=== PATIENT | female | born 1965 | race Caucasian/White ===

== ENCOUNTER 2017-01-29 14:57 | Emergency (ER) | payer OTHER ==
[2017-01-29 15:05] VITALS: BMI 20.1
[2017-01-29] MEDS ORDERED: ONDANSETRON 4 MG/2 ML VIAL IVPB ONE ×2 (15:31→21:02)
[2017-01-29] MEDS ORDERED: SODIUM CHLORIDE 1,000 ML IV ONE ×2 (15:31→17:33)
--- NOTE | 2017-01-29 15:32 | PDOC ---
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 She states she went to get up from laying in bed, and passed out on to ebathroom. She admits to feeling lightheaded after getting up and passing out, she suspects she hit her head as she endorses amild headache. The patient states she opened her eyes, realized she was on the floor, and crawled back into bed. The patient states she vomits mostly food yesterday but now is mostly clear/yellow - no blood/not black. She reports her abdominal pain as a diffuse burning and cramping. She denies any aggravating or alleviating factors for her abdominal pain. She also reports numerous episodes of loose watery stools. She denies hematochezia/black stool No known sick contacts. She denies chest pain, shortness of breath, headache and dizziness. She denies fever, chills, and constipation. She denies dysuria, frequency, urgency and hematuria. Allergies: Penicillins Past surgical history: appendectomy PCP - Dr. Mayur Marquez <Viola Moore - Last Filed: 01/29/17 16:27> <Jeremi Denny - Last Filed: 01/30/17 08:36> - General Chief Complaint: Nausea/Vomiting Stated Complaint: SYNCOPE,VOMITING Time Seen by Provider: 01/29/17 15:06 Past History <Viola Moore - Last Filed: 01/29/17 16:27> - Past Medical History Psychiatric Problems: Yes (ANXIETY) - Surgical History Abdominal Surgery: Yes Appendectomy: Yes - Psycho/Social/Smoking Cessation Hx Anxiety: No Suicidal Ideation: No Smoking Status: Yes Smoking History: Current every day smoker Have you smoked in the past 12 months: Yes Number of Cigarettes Smoked Daily: 5 Information on smoking cessation initiated: No 'Breaking Loose' booklet given: 03/25/16 Hx Alcohol Use: No Drug/Substance Use Hx: No Substance Use Type: None Hx Substance Use Treatment: No <Jeremi Denny - Last Filed: 01/30/17 08:36> - Past Medical History Allergies/Adverse Reactions: Allergies Allergy/AdvReac Type Severity Reaction Status Date / Time Penicillins Allergy Severe Difficulty Verified 01/29/17 15:03 Breathing Home Medications: Ambulatory Orders Oxycodone HCl 15 tab PO PRN PRN 03/25/16 Ondansetron [Zofran Odt -] 4 mg SL TID #21 od.tablet 01/30/17 Pantoprazole Sodium [Protonix -] 40 mg PO BID #60 tablet.ec 01/30/17 Sucralfate Oral Suspension [Carafate *Oral Susp*] 1 gm PO BID #200 ml 01/30/17 Review of Systems - Review of Systems Able to Perform ROS?: Yes Comments:: 01/29/17 16:27 CONSTITUTIONAL: No reported: Fever, Chills, Diaphoresis, Generalized Weakness, Malaise, Loss of Appetite HEENT: No reported: Rhinorrhea, Nasal Congestion, Throat Pain, Throat Swelling, Difficulty Swallowing, Mouth Swelling, Ear Pain, Eye Pain, Visual Changes CARDIOVASCULAR: No reported: Chest Pain, Syncope, Palpitations, Irregular Heart Rate, Lightheadedness, Peripheral Edema RESPIRATORY: No reported: Cough, Shortness of Breath, SOB with Exertion, Orthopnea, Wheezing , Stridor, Hemoptysis GASTROINTESTINAL: (+) Abdominal pain,Nausea, Vomiting, Diarrhea, No reported: Abdominal Distension, Constipation, Melena, Hematochezia GENITOURINARY: No reported: Dysuria, Frequency, Urgency, Hesitancy, Flank Pain, Genital Pain MUSCULOSKELETAL: No reported: Myalgia, Arthralgia, Joint Swelling, Back pain, Neck Pain SKIN: No reported: Rash, Itching, Pallor HEMEATOLOGIC/IMMUNOLOGIC: No reported: Easy Bleeding, Easy Bruising, Lymphadenopathy, Frequent infections ENDOCRINE: No reported: Unexplained Weight Gain, Unexplained Weight Loss, Heat Intolerance , Cold Intolerance NEUROLOGIC: No reported: Headache, Focal Weakness, Paresthesias, Vertigo, Lightheadedness, Unsteady Gait, Seizure, Mental Status Changes, Incontinence PSYCHIATRIC: No reported: Anxiety, Depression <Viola Moore - Last Filed: 01/29/17 16:27> *Physical Exam - Vital Signs Last Vital Signs Temp Pulse Resp BP Pulse Ox 98.6 F 73 20 152/98 100 06/15/17 15:03 01/29/17 15:03 01/29/17 15:03 01/29/17 15:03 01/29/17 15:03 - Physical Exam Comments: 01/29/17 16:27 GENERAL: The patient is awake, alert, and fully oriented, Nontoxic - in no acute distress. HEAD: Normocephalic, atraumatic. EYES: extraocular movements intact, sclera anicteric, conjunctiva clear. ENT: Normal voice, dry mucous membranes. NECK: Normal range of motion, supple LUNGS: Breath sounds equal, clear to auscultation bilaterally. No wheezes, no rhonchi, no rales. HEART: Regular rate and rhythm, without murmur, rub or gallop. ABDOMEN: (+) diffuse mild tenderness to palpation.hyper active bowel sounds, EXTREMITIES: Normal range of motion, no edema. No clubbing or cyanosis. No cords, erythema, or tenderness. NEUROLOGICAL: No facial assymetry, Normal speech, PSYCH: Normal mood, normal affect. SKIN: Warm, Dry, normal turgor, <Viola Moore - Last Filed: 01/29/17 16:27> - Vital Signs Last Vital Signs Temp Pulse Resp BP Pulse Ox 98.6 F 73 20 152/98 100 01/29/17 15:03 01/29/17 15:03 01/29/17 15:03 01/29/17 15:03 01/29/17 15:03 <Jeremi Denny - Last Filed: 01/30/17 08:36> ED Treatment Course - LABORATORY CBC & Chemistry Diagram: 01/29/17 16:00 01/29/17 16:00 <Viola Moore - Last Filed: 01/29/17 16:27> - LABORATORY CBC & Chemistry Diagram: 01/29/17 16:00 01/29/17 16:00 <Jeremi Denny - Last Filed: 01/30/17 08:36> Medical Decision Making - Medical Decision Making 01/29/17 17:32 labs reviewed noted for leukocytosis to 16.[address] due to persistent pain will sign out to dr. hammer to reasess and dispoiton <Jeremi Denny - Last Filed: 01/30/17 08:36> *DC/Admit/Observation/Transfer - Attestations Scribe Attestion: 01/29/17 16:28 Documentation prepared by Viola Moore, acting as medical office technologist for Jeremi Denny MD, <Viola Moore - Last Filed: 01/29/17 16:27> <Jeremi Denny - Last Filed: 01/30/17 08:36> Diagnosis at time of Disposition: Abdominal pain, Nausea & vomiting, Syncope - Discharge Dispostion Disposition: HOME Condition at time of disposition: Stable - Prescriptions Prescriptions: Sucralfate Oral Suspension [Carafate *Oral Susp*] 1 gm PO BID #200 ml Pantoprazole Sodium [Protonix -] 40 mg PO BID #60 tablet.ec Ondansetron [Zofran Odt -] 4 mg SL TID #21 od.tablet - Referrals Referrals: Mayur Marquez MD [Primary Care Provider] - - Patient Instructions Printed Discharge Instructions: DI for Abdominal Pain-Adult
[2017-01-29] MEDS ORDERED: ONDANSETRON 4 MG/2 ML VIAL ONE ×2 (15:38→19:07)
[2017-01-29] MEDS ORDERED: MAG HYDROX/AL HYDROX/SIMETH -MYLANTA- ORAL SUSPENSION PO ONE (15:43)
[2017-01-29] MEDS ORDERED: FAMOTIDINE 20 MG/50 ML IVPB 20 MG in PREMIX 50 IVPB ONE (15:43)
[2017-01-29] MEDS ORDERED: MAG HYDROX/AL HYDROX/SIMETH 30 ML UNIT-DOSE CUP ONE (15:44)
[2017-01-29] MEDS ORDERED: FAMOTIDINE 20 MG/50 ML IVPB 50 ML IVPB ONE (15:44)
[2017-01-29 16:21] LABS: HEMATOCRIT 46.1 % (32.4-45.2); HEMOGLOBIN 15.4 GM/dL (10.7-15.3); MCH 28.7 pg (25.7-33.7); MCHC 33.4 g/dl (32.0-36.0); MEAN CELL VOLUME 86.1 fl (80-96); MEAN PLT VOLUME 8.8 fl (7.5-11.1); PLATELET COUNT 305 K/MM3 (134-434); RBC 5.36 M/mm3 (3.60-5.2); WHITE BLOOD COUNT 16.5 K/mm3 (4.0-10.0)
[2017-01-29] MEDS ORDERED: morphine CARPU-JECT 2 MG/1 ML DISP.SYRIN IVPUSH ONE (16:30)
[2017-01-29 16:32] LABS: INR 1.11 (0.82-1.09); PROTHROMBIN TIME (PATIENT) 12.2 SEC (9.98-11.88)
[2017-01-29] MEDS ORDERED: morphine CARPU-JECT 2 MG/1 ML DISP.SYRIN ONE (16:39)
[2017-01-29 16:43] LABS: ANION GAP 13 (8-16); BLOOD UREA NITROGEN 11 mg/dL (7-18); CALCIUM 9.3 mg/dL (8.5-10.1); CHLORIDE 102 mmol/L (98-107); CO2 23 mmol/L (21-32); CREATININE 0.5 mg/dL (0.55-1.02); GLUCOSE,RANDOM 126 mg/dL (74-106); LIPASE 77 U/L (73-393); POTASSIUM 3.4 mmol/L (3.5-5.1); SGOT/AST 19 U/L (15-37); SGPT/ALT 24 U/L (12-78); SODIUM 138 mmol/L (136-145)
[2017-01-29 16:45] LABS: ALK PHOS 134 U/L (45-117); BILIRUBIN,TOTAL 0.7 mg/dL (0.2-1.0); TOT PROT 7.7 g/dl (6.4-8.2)
[2017-01-29 17:48] LABS: TOTAL CELLS COUNTED 100
[2017-01-29] MEDS ORDERED: morphine CARPU-JECT 4 MG/1 ML DISP.SYRIN IVPUSH ONE (17:48)
[2017-01-29] MEDS ORDERED: morphine CARPU-JECT 4 MG/1 ML DISP.SYRIN ONE (17:50)
[2017-01-29 17:52] LABS: PLATELET ESTIMATE ADEQUATE (NORMAL)
[2017-01-29] MEDS ORDERED: METOCLOPRAMIDE HCL INJECTION 10 MG/2 ML VIAL IVPUSH ONE (21:07)
[2017-01-29] MEDS ORDERED: DEXTROSE 5%-0.45% SALINE 1,000 ML IV SCH (21:15)
--- NOTE | 2017-01-29 22:16 | PDOC ---
*Physical Exam - Vital Signs Last Vital Signs Temp Pulse Resp BP Pulse Ox 98.9 F 85 20 140/66 98 01/29/17 19:00 01/29/17 19:00 01/29/17 19:00 01/29/17 19:00 01/29/17 19:00 - Physical Exam Comments: 01/29/17 22:14 patient endorsed to me by Dr. Denny. Patient is a 51-year-old female who presented to the ER after syncopal episode preceded by numerous episodes of nonbloody, nonbilious vomiting and loose watery stools as well as diffuse abdominal pain. In the ER, patient is awake and alert, has received 2 doses of IV morphine. CBC reveals leukocytosis of 16 and predominance of neutrophils. CT of abdomen and pelvis with by mouth and IV contrast revealed no evidence of acute intra-abdominal pathology. I suspect acute gastroenteritis. We'll administer Reglan with Benadryl since IV Zofran has not been able to control patient's nausea and vomiting. We'll administer D5 half-normal. Will reassess. 01/30/17 01:51 pt reports feeling better. sen po. abd eval reveals epigastric ttp only. will d/c with protonix, carafate and zofran with gi f/u. ED Treatment Course - LABORATORY CBC & Chemistry Diagram: 01/29/17 16:00 01/29/17 16:00 - ADDITIONAL ORDERS Additional order review: Laboratory Results 01/29/17 01/29/17 16:00 16:00 INR 1.11 Sodium 138 Potassium 3.4 L D Chloride 102 Carbon Dioxide 23 Anion Gap 13 BUN 11 D Creatinine 0.5 L Creat Clearance w eGFR > 60 Random Glucose 126 H D Calcium 9.3 Total Bilirubin 0.7 D AST 19 D ALT 24 D Alkaline Phosphatase 134 H D Total Protein 7.7 D Albumin 4.0 D Lipase 77 01/29/17 16:00 RBC 5.36 H MCV 86.1 MCHC 33.4 RDW 13.0 MPV 8.8 Neutrophils % 85.0 H D Lymphocytes % 7.0 L D Monocytes % 3.0 L - Medications Given in the ED: ED Medications Discontinued Medications Generic Name Dose Route Start Last Admin Trade Name Freq PRN Reason Stop Dose Admin Al Hydroxide/Mg Hydroxide 30 ml 01/29/17 15:43 01/29/17 16:22 Mylanta Suspension - PO 01/29/17 15:44 30 ml ONCE ONE Administration Sodium Chloride 1,000 mls @ 1,000 mls/hr 01/29/17 15:31 01/29/17 16:26 Normal Saline - IV 01/29/17 16:30 1,000 mls/hr .Q1H ONE Administration Famotidine/Sodium Chloride 20 50 mls @ 100 mls/hr 01/29/17 15:43 01/29/17 16:27 mg/ Miscellaneous IVPB 01/29/17 16:12 100 mls/hr ONCE ONE Administration Sodium Chloride 1,000 mls @ 1,000 mls/hr 01/29/17 17:33 01/29/17 17:37 Normal Saline - IV 01/29/17 18:32 1,000 mls/hr .Q1H ONE Administration Morphine Sulfate 2 mg 01/29/17 16:30 01/29/17 16:44 Morphine Injection - IVPUSH 01/29/17 16:31 2 mg ONCE ONE Administration Morphine Sulfate 4 mg 01/29/17 17:48 01/29/17 17:49 Morphine Injection - IVPUSH 01/29/17 17:49 4 mg ONCE ONE Administration Ondansetron HCl 4 mg 01/29/17 15:31 01/29/17 16:26 Zofran Injection IVPB 01/29/17 15:32 4 mg ONCE ONE Administration *DC/Admit/Observation/Transfer Diagnosis at time of Disposition: Abdominal pain Qualifiers: Abdominal location: epigastric Qualified Code(s): R10.13 - Epigastric pain Nausea & vomiting Qualifiers: Vomiting type: unspecified Vomiting Intractability: non-intractable Qualified Code(s): R11.2 - Nausea with vomiting, unspecified Syncope Qualifiers: Syncope type: unspecified Qualified Code(s): R55 - Syncope and collapse - Discharge Dispostion Disposition: HOME Condition at time of disposition: Stable - Referrals Referrals: Mayur Marquez MD [Primary Care Provider] - - Patient Instructions - Post Discharge Activity
[2017-01-29] MEDS ORDERED: METOCLOPRAMIDE HCL INJECTION 10 MG/2 ML VIAL ONE (22:19)
[2017-01-30] MEDS ORDERED: SUCRALFATE 1 GM/10 ML UNIT DOSE CUPS PO ONE (00:42)
[2017-01-30] MEDS ORDERED: SUCRALFATE 1 GM TABLET (FP) ONE (00:49)
[2017-01-30 02:33] VITALS: BP 148/94; PULSE 70; TEMP 98.5
--- NOTE | 2017-01-30 09:40 | EKG ---
Test Reason : Blood Pressure : / mmHG Vent. Rate : 080 BPM Atrial Rate : 080 BPM P-R Int : 170 ms QRS Dur : 090 ms QT Int : 416 ms P-R-T Axes : 006 062 044 degrees QTc Int : 479 ms NORMAL SINUS RHYTHM NONSPECIFIC T WAVE ABNORMALITY WHEN COMPARED WITH ECG OF 25-MAR-2016 09:39, NO SIGNIFICANT CHANGE WAS FOUND Confirmed by ROHIT WATTS MD ([id number]) on 01/30/2017 9:40:30 AM Referred By: Confirmed By:ROHIT WATTS MD
== END 2017-01-30 01:59 | disposition home or self-care (01) ==
LOC: JER 14:57
PROC: 3E033NZ Introduction of Analgesics, Hypnotics, Sedatives into Peripheral Vein, Percutaneous Approach (ICD-10-PCS; principal; 2017-01-29)
PROC: 3E033GC Introduction of Other Therapeutic Substance into Peripheral Vein, Percutaneous Approach (ICD-10-PCS; 2017-01-29)
PROC: 3E0337Z Introduction of Electrolytic and Water Balance Substance into Peripheral Vein, Percutaneous Approach (ICD-10-PCS; 2017-01-29)
DX: R55 Syncope and collapse (principal); R11.2 Nausea with vomiting, unspecified; R10.9 Unspecified abdominal pain; F41.9 Anxiety disorder, unspecified; F17.210 Nicotine dependence, cigarettes, uncomplicated; Z88.0 Allergy status to penicillin
CPT/HCPCS: 36415; 74177-TC; 80053; 83690; 85025; 85610; 93005; 93010; 99284-25; J7030

== ENCOUNTER 2018-01-21 23:04 | Inpatient (IN) | payer OTHER ==
[2018-01-21] MEDS ORDERED: ACETAMINOPHEN 325 MG TABLET (FP) ONE (23:39)
--- NOTE | 2018-01-21 23:43 | PDOC ---
History of Present Illness - General Chief Complaint: Difficulty seeing Stated Complaint: Difficulty seeing Time Seen by Provider: 01/21/18 23:26 History Source: Patient - History of Present Illness Initial Comments: 01/21/18 23:55 52 year old female with generalized bodyaches, neck pain and headache with vision loss (sees shadows) since this morning. denies NVD abdominal pain. pmhx: back surgeries Dr. Mayur Marquez Past History - Past Medical History Allergies/Adverse Reactions: Allergies Allergy/AdvReac Type Severity Reaction Status Date / Time Penicillins Allergy Severe Difficulty Verified 01/21/18 23:24 Breathing Anemia: No Asthma: No Cancer: No Cardiac Disorders: No CVA: No COPD: No DVT: No Dementia: No Diabetes: No Dialysis: No GI Disorders: No Disorders: No HTN: Yes Hypercholesterolemia: No Kidney Stones: No Liver Disease: No Psychiatric Problems: Yes (ANXIETY) Seizures: No Thyroid Disease: No Lung CA: No - Surgical History Abdominal Surgery: Yes Appendectomy: Yes Cardiac Surgery: No Cholecystectomy: No Gastric Stapling: No GI Surgery: No Lung Surgery: No Neurologic Surgery: Yes (Spinal sx) - Family Disease History Family Disease History: Other: Brother (poly) - Suicide/Smoking/Psychosocial Hx Smoking Status: Yes Smoking History: Current some day smoker Have you smoked in the past 12 months: Yes Number of Cigarettes Smoked Daily: 5 Information on smoking cessation initiated: Yes 'Breaking Loose' booklet given: 03/25/16 Hx Alcohol Use: No Drug/Substance Use Hx: No Substance Use Type: None Hx Substance Use Treatment: No *Physical Exam - Vital Signs Last Vital Signs Temp Pulse Resp BP Pulse Ox 99.9 F H 90 18 158/100 98 01/21/18 23:18 01/21/18 23:18 01/21/18 23:18 01/21/18 23:18 01/21/18 23:18 - Physical Exam General Appearance: Yes: Moderate Distress HEENT: positive: Other (+ b/l red reflex pupils equal and reactive. ) Respiratory/Chest: positive: Lungs Clear, Normal Breath Sounds Cardiovascular: positive: Regular Rhythm, Regular Rate Gastrointestinal/Abdominal: positive: Normal Bowel Sounds, Soft Extremity: positive: Normal Capillary Refill, Normal Inspection, Normal Range of Motion Integumentary: positive: Normal Color, Dry, Warm Neurologic: positive: Fully Oriented, Alert, Normal Mood/Affect Heart Score/ECG Review - History History: Slightly suspicious - Electrocardiogram EKG: Normal - Age Age: 45-65 - Risk Factors Based on the list above the patient has:: 1-2 risk factors - Troponin Troponin: 1-3x normal limit - Score Heart Score - Total: 3 - ECG Intrepretation Rhythm: Regular Rhythm Comment:: 01/22/18 02:41 NSR: 72 bpm ED Treatment Course - LABORATORY CBC & Chemistry Diagram: 01/21/18 23:57 01/21/18 23:55 Medical Decision Making - Medical Decision Making 01/22/18 03:29 Lumbar puncture attempted. multiple attempt. patient with history of spinal fusions. patient need IR guided LP. patient continues to have severe headache. will give fentanyl 25 mcg dose # 2. 01/22/18 03:35 patient reports that she does not have an allergy to penicillin. will give ceftriaxone 01/22/18 03:56 Patient is accepted to the ICU for neurological monitoring. currently hemodynamically stable. patient signed out to Dr. Barrett *DC/Admit/Observation/Transfer Diagnosis at time of Disposition: Vision loss, bilateral Intractable headache Qualifiers: Headache type: unspecified Headache chronicity pattern: acute headache Qualified Code(s): R51 - Headache - Discharge Dispostion Decision to Admit order: Yes - Referrals - Patient Instructions - Post Discharge Activity
[2018-01-21] MEDS ORDERED: SODIUM CHLORIDE 1,000 ML IV ONE (23:48)
[2018-01-22] MEDS ORDERED: METOCLOPRAMIDE HCL INJECTION 10 MG/2 ML VIAL ONE (00:10)
[2018-01-22] MEDS ORDERED: METOCLOPRAMIDE HCL INJECTION 10 MG/2 ML VIAL IVPUSH ONE (00:11)
[2018-01-22] MEDS ORDERED: ACETAMINOPHEN INJECTION 100 ML IVPB ONE (00:11)
[2018-01-22] MEDS ORDERED: ACETAMINOPHEN 1000 MG/100 ML VIAL (NON FORMULARY) IVPB ONE (00:11)
[2018-01-22 00:19] LABS: BASO % 0.2 % (0-2.0); HEMATOCRIT 46.4 % (32.4-45.2); HEMOGLOBIN 15.9 GM/dL (10.7-15.3); LYMPH % 8.7 % (8-40); MCH 29.7 pg (25.7-33.7); MCHC 34.3 g/dl (32.0-36.0); MEAN CELL VOLUME 86.7 fl (80-96); MEAN PLT VOLUME 9.3 fl (7.5-11.1); MONO % 5.6 % (3.8-10.2); NEUT % 85.5 % (42.8-82.8); PLATELET COUNT 328 K/MM3 (134-434); RBC 5.36 M/mm3 (3.60-5.2); WHITE BLOOD COUNT 20.2 K/mm3 (4.0-10.0)
[2018-01-22 00:30] LABS: INR 1.05 (0.82-1.09); PROTHROMBIN TIME (PATIENT) 11.9 SEC (9.7-13.0)
[2018-01-22 00:41] LABS: ALBUMIN 3.9 g/dl (3.4-5.0); ALK PHOS 111 U/L (45-117); ANION GAP 10 (8-16); BILIRUBIN,TOTAL 0.9 mg/dL (0.2-1.0); BLOOD UREA NITROGEN 13 mg/dL (7-18); CALCIUM 8.8 mg/dL (8.5-10.1); CHLORIDE 103 mmol/L (98-107); CO2 22 mmol/L (21-32); CREATININE 0.6 mg/dL (0.55-1.02); GLUCOSE,RANDOM 112 mg/dL (74-106); POTASSIUM 3.5 mmol/L (3.5-5.1); SGOT/AST 21 U/L (15-37); SGPT/ALT 27 U/L (12-78); SODIUM 135 mmol/L (136-145); TOT PROT 7.8 g/dl (6.4-8.2)
[2018-01-22 00:55] LABS: PLATELET ESTIMATE ADEQUATE
[2018-01-22] MEDS ORDERED: morphine CARPU-JECT 4 MG/1 ML DISP.SYRIN IVPUSH ONE ×2 (00:56→02:04)
[2018-01-22] MEDS ORDERED: morphine SULFATE 4 MG/ML VIAL ONE ×2 (00:56→02:00)
[2018-01-22] MEDS ORDERED: SODIUM CHLORIDE 1,000 ML IV STA (00:59)
[2018-01-22] MEDS ORDERED: MAGNESIUM SULF 50% (8.12 MEQ/2 ML-1 GM VIAL) IVPB ONE (01:16)
[2018-01-22] MEDS ORDERED: DEXAMETHASONE SOD PHOSPHATE 10 MG/1 ML VIAL IVPUSH ONE (01:16)
[2018-01-22] MEDS ORDERED: DEXAMETHASONE SOD PHOSPHATE 10 MG/1 ML VIAL ONE (01:22)
--- NOTE | 2018-01-22 01:32 | PDOC ---
*Physical Exam - Vital Signs Last Vital Signs Temp Pulse Resp BP Pulse Ox 99.9 F H 90 18 158/100 98 01/21/18 23:18 01/21/18 23:18 01/21/18 23:18 01/21/18 23:18 01/21/18 23:18 - Physical Exam Comments: 01/22/18 02:03 gen: appears uncomfortable HEENT: sees shadows, unable to see otherwise, pupils reactive neck: supple, no meningeal signs neuro: no focal deficits other than acute vision loss Heart Score/ECG Review - ECG Intrepretation Comment:: 01/22/18 01:32 sinus at 72, nl axis, nl interval, t wave inversions V2, abnl ekg ED Treatment Course - LABORATORY CBC & Chemistry Diagram: 01/21/18 23:57 01/21/18 23:55 - ADDITIONAL ORDERS Additional order review: Laboratory Results 01/22/18 01/21/18 01/21/18 00:33 23:57 23:55 PT with INR 11.90 INR 1.05 Sodium 135 L Potassium 3.5 Chloride 103 Carbon Dioxide 22 Anion Gap 10 BUN 13 Creatinine 0.6 Creat Clearance w eGFR > 60 Random Glucose 112 H Lactic Acid 1.1 Calcium 8.8 Total Bilirubin 0.9 D AST 21 ALT 27 Alkaline Phosphatase 111 Creatine Kinase 223 H Creatine Kinase Index 0.6 CK-MB (CK-2) 1.36 Troponin I 0.07 H Total Protein 7.8 Albumin 3.9 01/21/18 23:57 RBC 5.36 H MCV 86.7 MCHC 34.3 RDW 13.0 MPV 9.3 Neutrophils % 85.5 H Lymphocytes % 8.7 D Monocytes % 5.6 D Eosinophils % 0.0 D Basophils % 0.2 - Medications Given in the ED: ED Medications Discontinued Medications Generic Name Dose Route Start Last Admin Trade Name Freq PRN Reason Stop Dose Admin Acetaminophen 1,000 mg 01/22/18 00:11 01/22/18 00:31 Ofirmev Injection - IVPB 01/22/18 00:12 1,000 mg ONCE ONE Administration Sodium Chloride 1,000 mls @ 1,000 mls/hr 01/21/18 23:48 01/22/18 00:05 Normal Saline - IV 01/22/18 00:47 1,000 mls/hr .Q1H ONE Administration Metoclopramide HCl 10 mg 01/22/18 00:11 01/22/18 00:31 Reglan Injection - IVPUSH 01/22/18 00:12 10 mg ONCE ONE Administration Morphine Sulfate 4 mg 01/22/18 00:56 01/22/18 00:59 Morphine Injection - IVPUSH 01/22/18 00:57 4 mg ONCE ONE Administration Medical Decision Making - Medical Decision Making 01/22/18 01:22 a/p: 52yo female with back pain, neck pain, bergman, vision loss today - generalized body aches -concern for acute vision loss - woke up with the vision loss appears uncomfortable will need labs, ekg, cxr, head ct 01/22/18 01:[address] without acute findings will obtain cta head to eval vessels elevated wbc may need LP will give steroids cultures sent low grade temp 01/22/18 02:04 pt will be signed out to the oncoming ED physician *DC/Admit/Observation/Transfer Diagnosis at time of Disposition: Vision loss, bilateral - Referrals - Patient Instructions - Post Discharge Activity - Attestations Physician Attestion: 01/22/18 02:04 I, Dr. Michelle Purdy, DO, attest that this document has been prepared under my direction and personally reviewed by me in its entirety. I further attest, that it accurately reflects all work, treatment, procedures and medical decision -making performed by me.
[2018-01-22 01:59] LABS: INR 1.04 (0.82-1.09); PROTHROMBIN TIME (PATIENT) 11.8 SEC (9.7-13.0)
[2018-01-22 02:01] LABS: ACTIVATED PTT 37.5 SECONDS (26.9-34.4)
[2018-01-22 02:04] LABS: URINE APPEARANCE CLEAR; URINE BILIRUBIN NEGATIVE (<2.0 mg/dL); URINE BLOOD 2+ (NEGATIVE); URINE COLOR STRAW; URINE GLUCOSE (UA) NEGATIVE (NEGATIVE); URINE KETONE 1+ (NEGATIVE); URINE LEUK ESTERASE NEGATIVE (NEGATIVE); URINE NITRITE NEGATIVE (NEGATIVE); URINE UROBILINOGEN NEGATIVE mg/dL (0.2-1.0)
[2018-01-22 02:10] LABS: URINE PROTEIN 1+ (NEGATIVE)
[2018-01-22 02:12] LABS: EPI CELLS FEW /HPF (FEW); URINE BACTERIA FEW /hpf (NONE SEEN); URINE MUCUS RARE
[2018-01-22 02:40] LABS: COCAINE, UR NEGATIVE ng/ml (CUTOFF=300); METHADONE, UR NEGATIVE ng/ml (CUTOFF=300); PHENCYCLIDINE,URINE NEGATIVE ng/ml (CUTOFF=25); URINE AMPHETAMINES NEGATIVE ng/ml (CUTOFF=500); URINE BARBITURATES NEGATIVE ng/ml (CUTOFF=200); URINE BENZODIAZEPINES NEGATIVE ng/ml (CUTOFF=200)
[2018-01-22 02:41] LABS: OPIATES, URI POSITIVE ng/ml (CUTOFF=300)
[2018-01-22] MEDS ORDERED: LIDOCAINE HCL 2% (20ML MULTI-DOSE VIAL) NR ONE (03:22)
[2018-01-22] MEDS ORDERED: VANCOMYCIN 1,000 MG in DEXTROSE 5%-WATER - 250 ML IVPB ONE (03:30)
[2018-01-22] MEDS ORDERED: CEFTRIAXONE 2 GM-D5W BAG 2 GM/50 ML BAG IVPB ONE (03:30)
[2018-01-22] MEDS ORDERED: ACYCLOVIR INJECTION 500 MG in DEXTROSE 5%-WATER - 100 ML IVPB ONE (03:30)
[2018-01-22 04:41] VITALS: BMI 19.8
[2018-01-22] MEDS ORDERED: ACETAMINOPHEN 1000 MG/100 ML VIAL (NON FORMULARY) IVPB PRN (04:56)
[2018-01-22] MEDS ORDERED: hydrALAZINE HCL 20 MG/ML VIAL IVPUSH ONE (04:57)
[2018-01-22] MEDS ORDERED: morphine SULFATE 4 MG/ML VIAL IVPUSH PRN ×2 (05:09→11:48)
--- NOTE | 2018-01-22 05:27 | CONSULT ---
Consult Consult Specialty:: Pulm/CCM Reason for Consultation:: Alteration in vision and headache - History of Present Illness Chief Complaint: Headache History of Present Illness: 52yow with PMHx of HTN (non-compliant with meds), spinal stenosis s/p fusion who presented to ED with c/o headache and vision loss x1 day. She also c/o dizziness, n/v. She denied chest pain, SOB, LOC, weakness, paresthesia. In ED T 99.9, HR 90, RR 18, BP 158/100, O2 sat 98% on room air. Labs notable for WBC 20, troponin 0.07. Urine tox +opiates but sent after morphine dose. CTA head negative for acute pathology. Given leukocytosis there was c/f meningitis. LP unsuccessful after multiple attempts. Started empirically on meningitis coverage pending LP in IR. Given decadron. Morphine given for headache. She was transferred to ICU for neuro checks. In ICU pt rec'd anxious and c/o headache / and requesting pain. VS [id number]- 140's/80-100, HR70, T 98.2, O2 sat 100% on room air. No focal deficits. Pt c/o numbness and tingling in BUE fingers. Pt able to ambulate with minimal assistance to bathroom. Continued empiric meningitis meds. - Past Medical History ...: No Musculoskeletal: Yes: Chronic low back pain (she has been getting injections at a pain clinic for back pain) - Past Surgical History Past Surgical History: Yes: Appendectomy - Alcohol/Substance Use Hx Alcohol Use: No - Smoking History Smoking history: Current some day smoker Have you smoked in the past 12 months: Yes Aproximately how many cigarettes per day: 5 - Social History ADL: Independent Home Medications - Allergies Allergies/Adverse Reactions: Allergies Allergy/AdvReac Type Severity Reaction Status Date / Time Penicillins Allergy Severe Difficulty Verified 01/21/18 23:24 Breathing Family Disease History - Family Disease History Family Disease History: Heart Disease: Mother, Respiratory: Father, Mother Review of Systems - Review of Systems Constitutional: reports: No Symptoms Eyes: reports: Recent Change in Vision HENT: reports: No Symptoms Neck: reports: No Symptoms Cardiovascular: reports: No Symptoms Respiratory: reports: No Symptoms Gastrointestinal: reports: Nausea, Vomiting Genitourinary: reports: No Symptoms Musculoskeletal: reports: No Symptoms Integumentary: reports: No Symptoms Neurological: reports: Dizziness, Headache Endocrine: reports: No Symptoms Hematology/Lymphatic: reports: No Symptoms Psychiatric: reports: Anxiety Pain Intensity: 10 Physical Exam Vital Signs: Vital Signs Temperature 98.2 F 01/22/18 04:33 Pulse Rate 88 01/22/18 04:33 Respiratory Rate 20 01/22/18 04:33 Blood Pressure 168/94 01/22/18 04:33 O2 Sat by Pulse Oximetry (%) 100 01/22/18 04:44 Constitutional: Yes: No Distress, Anxious, Thin Eyes: Yes: Conjunctiva Clear, EOM Intact, PERRL HENT: Yes: Atraumatic, Normocephalic, Other (dry MM) Neck: Yes: Supple Cardiovascular: Yes: Regular Rate and Rhythm, S1, S2 Respiratory: Yes: Regular, CTA Bilaterally Gastrointestinal: Yes: Normal Bowel Sounds, Soft Renal/: Yes: WNL Musculoskeletal: Yes: WNL Extremities: Yes: WNL Edema: No Integumentary: Yes: WNL Neurological: Yes: Alert, Oriented, Cran Nerves II-XII Intact ...Motor Strength: WNL Psychiatric: Yes: Alert, Oriented, Other (anxious) Labs: CBC, BMP 01/21/18 23:57 01/21/18 23:55 Imaging - Results Chest X-ray: Image Reviewed Cat Scan: Report Reviewed (CT headno acute pathology) Problem List - Problems (1) Intractable headache Code(s): R51 - HEADACHE Qualifiers: Headache type: unspecified Headache chronicity pattern: acute headache Qualified Code(s): R51 - Headache (2) Vision loss, bilateral Code(s): H54.3 - UNQUALIFIED VISUAL LOSS, BOTH EYES (3) Anxiety Code(s): F41.9 - ANXIETY DISORDER, UNSPECIFIED (4) Back pain Code(s): M54.9 - DORSALGIA, UNSPECIFIED Qualifiers: Back pain location: low back pain (5) Dehydration Code(s): E86.0 - DEHYDRATION Assessment/Plan 52yow with PMHx of uncontrolled HTN, spinal stenosis s/p spinal fusion in ICU with intractable headache and vision loss. CTA head negative for bleed or pathology. C/f meningitis given WBC 20 and is empirically started on meningitis coverage. Plan: -LP in IR -Continue empiric meningitis coverage -neuro checks q1 -Droplet precautions -Morphine prn for pain -Recommend psyche consult -Trend troponin, ECG -IV hydration -DVT prophylaxis Annmarie Smith, HILD[facility] time 35mins
[2018-01-22 06:16] LABS: HEMATOCRIT 45.2 % (32.4-45.2); HEMOGLOBIN 15.4 GM/dL (10.7-15.3); MCH 29.7 pg (25.7-33.7); MCHC 34.1 g/dl (32.0-36.0); MEAN CELL VOLUME 87.1 fl (80-96); MEAN PLT VOLUME 9.2 fl (7.5-11.1); PLATELET COUNT 327 K/MM3 (134-434); RBC 5.19 M/mm3 (3.60-5.2); RDW 13.1 % (11.6-15.6); WHITE BLOOD COUNT 16.1 K/mm3 (4.0-10.0)
[2018-01-22 06:35] VITALS: TEMP 98.7
[2018-01-22 06:42] LABS: ANION GAP 11 (8-16); BLOOD UREA NITROGEN 9 mg/dL (7-18); CALCIUM 8.6 mg/dL (8.5-10.1); CHLORIDE 103 mmol/L (98-107); CO2 23 mmol/L (21-32); GLUCOSE,RANDOM 162 mg/dL (74-106); POTASSIUM 3.6 mmol/L (3.5-5.1); SODIUM 137 mmol/L (136-145)
[2018-01-22 06:43] LABS: INR 1.04 (0.82-1.09); PROTHROMBIN TIME (PATIENT) 11.8 SEC (9.7-13.0)
[2018-01-22 06:45] LABS: ACTIVATED PTT 33.3 SECONDS (26.9-34.4)
[2018-01-22 06:48] LABS: ALK PHOS 115 U/L (45-117); CREATININE 0.6 mg/dL (0.55-1.02); SGOT/AST 23 U/L (15-37); SGPT/ALT 25 U/L (12-78); TOT PROT 7.9 g/dl (6.4-8.2)
--- NOTE | 2018-01-22 09:29 | CONSULT ---
Consult - text type - Consultation Consultation Note: Neurology Chief Complaint: Headache History of Present Illness: Covering for Dr. Garza 52yo female with PMHx of HTN (non-compliant with meds), spinal stenosis s/p fusion who presented to ED with c/o headache and vision loss x1 day. She also c/ o dizziness, n/v. She denied chest pain, SOB, LOC, weakness, paresthesia. In ED T 99.9, HR 90, RR 18, BP 158/100, O2 sat 98% on room air. Labs notable for WBC 20, troponin 0.07. Urine tox +opiates but sent after morphine dose. CT and CTA report pending but appears without acute changes. Question of possible meningitis due to increased temp and mention of headache/neck discomfort. LP unsuccessful after multiple attempts. Started empirically on meningitis coverage pending LP in IR. Given decadron. Morphine given for headache per notes. She was transferred to ICU for neuro checks. Seen in ICU and with pressured speech. Appears very anxious and perisistently requesting pain medication though not uncomfortable appearing. No focal deficits and does not demonstrate signficant nuchal rigidity. Possibility of meningitis seems low to me, but defer to ID for further evaluation and consider IR guided LP if desired. - Past Medical History ...: No Musculoskeletal: Yes: Chronic low back pain (she has been getting injections at a pain clinic for back pain) - Past Surgical History Past Surgical History: Yes: Appendectomy - Alcohol/Substance Use Hx Alcohol Use: No - Smoking History Smoking history: Current some day smoker Have you smoked in the past 12 months: Yes Aproximately how many cigarettes per day: 5 - Social History ADL: Independent Home Medications - Allergies Allergies/Adverse Reactions: Allergies Allergy/AdvReac Type Severity Reaction Status Date / Time Penicillins Allergy Severe Difficulty Verified 01/21/18 23:24 Breathing Family Disease History - Family Disease History Family Disease History: Heart Disease: Mother, Respiratory: Father, Mother Review of Systems - Review of Systems Constitutional: reports: No Symptoms Eyes: reports: Recent Change in Vision HENT: reports: No Symptoms Neck: reports: No Symptoms Cardiovascular: reports: No Symptoms Respiratory: reports: No Symptoms Gastrointestinal: reports: Nausea, Vomiting Genitourinary: reports: No Symptoms Musculoskeletal: reports: No Symptoms Integumentary: reports: No Symptoms Neurological: reports: Dizziness, Headache Endocrine: reports: No Symptoms Hematology/Lymphatic: reports: No Symptoms Psychiatric: reports: Anxiety Pain Intensity: 10 Physical Exam Vital Signs Period Temp Pulse Resp BP Sys/George Pulse Ox Last 24 Hr 98.2 F-99.9 F 64-90 18-20 142-168/89-100 98-100 Constitutional: Yes: No Distress, Anxious, Thin Eyes: Yes: Conjunctiva Clear, EOM Intact, PERRL HENT: Yes: Atraumatic, Normocephalic, Other (dry MM) Neck: Yes: Supple Cardiovascular: Yes: Regular Rate and Rhythm, S1, S2 Respiratory: Yes: Regular, CTA Bilaterally Gastrointestinal: Yes: Normal Bowel Sounds, Soft Renal/: Yes: WNL Musculoskeletal: Yes: WNL Extremities: Yes: WNL Edema: No Integumentary: Yes: WNL Neurological: Yes: Alert, Oriented, Cran Nerves II-XII Intact, sensory grossly intact, minimal nuchal rigidity ...Motor Strength: WNL Psychiatric: Yes: Alert, Oriented, Other (anxious) Labs: CBCD WBC 16.1 K/mm3 (4.0-10.0) H 01/22/18 06:00 RBC 5.19 M/mm3 (3.60-5.2) 01/22/18 06:00 Hgb 15.4 GM/dL (10.7-15.3) H 01/22/18 06:00 Hct 45.2 % (32.4-45.2) 01/22/18 06:00 MCV 87.1 fl (80-96) 01/22/18 06:00 MCHC 34.1 g/dl (32.0-36.0) 01/22/18 06:00 RDW 13.1 % (11.6-15.6) 01/22/18 06:00 Plt Count 327 K/MM3 (134-434) 01/22/18 06:00 MPV 9.2 fl (7.5-11.1) 01/22/18 06:00 CMP Sodium 137 mmol/L (136-145) 01/22/18 06:00 Potassium 3.6 mmol/L (3.5-5.1) 01/22/18 06:00 Chloride 103 mmol/L (98-107) 01/22/18 06:00 Carbon Dioxide 23 mmol/L (21-32) 01/22/18 06:00 Anion Gap 11 (8-16) 01/22/18 06:00 BUN 9 mg/dL (7-18) 01/22/18 06:00 Creatinine 0.6 mg/dL (0.55-1.02) 01/22/18 06:00 Creat Clearance w eGFR > 60 (>60) 01/22/18 06:00 Random Glucose 162 mg/dL (74-106) H 01/22/18 06:00 Calcium 8.6 mg/dL (8.5-10.1) 01/22/18 06:00 Total Bilirubin 1.0 mg/dL (0.2-1.0) 01/22/18 06:00 AST 23 U/L (15-37) 01/22/18 06:00 ALT 25 U/L (12-78) 01/22/18 06:00 Alkaline Phosphatase 115 U/L (45-117) 01/22/18 06:00 Total Protein 7.9 g/dl (6.4-8.2) 01/22/18 06:00 Albumin 4.0 g/dl (3.4-5.0) 01/22/18 06:00 CARDIAC ENZYMES Creatine Kinase 221 IU/L (26-192) H 01/22/18 06:00 Troponin I 0.08 ng/ml (0.00-0.05) H 01/22/18 06:00 Imaging - Results Chest X-ray: Image Reviewed Cat Scan: Report Reviewed (CT head, CTA no acute pathology) Plan: 52yo female with PMHx of HTN (non-compliant with meds), spinal stenosis s/p fusion who presented to ED with c/o headache and vision loss x1 day. She also c/ o dizziness, n/v. She denied chest pain, SOB, LOC, weakness, paresthesia. In ED T 99.9, HR 90, RR 18, BP 158/100, O2 sat 98% on room air. Labs notable for WBC 20, troponin 0.07. Urine tox +opiates but sent after morphine dose. CT and CTA report pending but appears without acute changes. Question of possible meningitis due to increased temp and mention of headache/neck discomfort. LP unsuccessful after multiple attempts. Started empirically on meningitis coverage pending LP in IR. Given decadron. Morphine given for headache per notes. She was transferred to ICU for neuro checks. Seen in ICU and with pressured speech. Appears very anxious and perisistently requesting pain medication though not uncomfortable appearing. No focal deficits and does not demonstrate signficant nuchal rigidity. Possibility of meningitis seems low to me, but defer to ID for further evaluation and consider IR guided LP if desired Would be cautious with pain medication Will add cyclobenzaprine low dose 5mg Recommend ID evaluation Follow up CTA Consider psych eval, underlying anxiety Critical care time: 35 mins
[2018-01-22 10:09] VITALS: BP 153/99; PULSE 20
--- NOTE | 2018-01-22 10:20 | EKG ---
Test Reason : Blood Pressure : / mmHG Vent. Rate : 072 BPM Atrial Rate : 072 BPM P-R Int : 152 ms QRS Dur : 094 ms QT Int : 448 ms P-R-T Axes : -01 030 054 degrees QTc Int : 490 ms NORMAL SINUS RHYTHM NONSPECIFIC T WAVE ABNORMALITY PROLONGED QT ABNORMAL ECG WHEN COMPARED WITH ECG OF 29-JAN-2017 18:07, NO SIGNIFICANT CHANGE WAS FOUND Confirmed by ROHIT WATTS MD ([id number]) on 01/22/2018 10:20:48 AM Referred By: Confirmed By:ROHIT WATTS MD
[2018-01-22] MEDS ORDERED: amLODIPine BESYLATE 5 MG TABLET (FP) PO ONE (11:14)
--- NOTE | 2018-01-22 11:55 | PN ---
Teaching Attending Note Name of Resident: Hema Montes ATTENDING PHYSICIAN STATEMENT I saw and evaluated the patient. I reviewed the resident's note and discussed the case with the resident. I agree with the resident's findings and plan as documented. SUBJECTIVE: Reports vision is about the same, blurry and shadows. No pain or ANGELES. Asking for pain medications. Intake & Output 01/19/18 01/20/18 01/21/18 01/22/18 23:59 23:59 23:59 23:59 Intake Total 100 Balance 100 Weight 110 lb 123 lb Last Vital Signs Temp Pulse Resp BP Pulse Ox 98.7 F 20 L 20 153/99 99 01/22/18 06:00 01/22/18 10:00 01/22/18 10:00 01/22/18 10:00 01/22/18 09:00 Active Medications Acetaminophen (Ofirmev Injection -) 1,000 mg IVPB Q6H PRN PRN Reason: HEADACHE Last Admin: 01/22/18 04:50 Dose: 1,000 mg Morphine Sulfate (Morphine Sulfate) 4 mg IVPUSH Q6H PRN PRN Reason: PAIN LEVEL 4 - 6 Last Admin: 01/22/18 05:23 Dose: 4 mg Constitutional: Yes: NAD, Thin Eyes: Yes: Conjunctiva Clear, EOM Intact, PERRL HENT: Yes: Atraumatic, Normocephalic, Other (dry MM) Neck: Yes: Supple Cardiovascular: Yes: Regular Rate and Rhythm, S1, S2 Respiratory: Yes: Regular, CTA Bilaterally Gastrointestinal: Yes: Normal Bowel Sounds, Soft Renal/: Yes: WNL Musculoskeletal: Yes: WNL Extremities: Yes: WNL Edema: No Integumentary: Yes: WNL Neurological: Yes: Non-focal, limited normal fundoscopic exam ...Motor Strength: WNL Psychiatric: Yes: Alert, Oriented, anxious Labs: Laboratory Results - last 24 hr 01/21/18 01/21/18 01/21/18 23:55 23:57 23:57 WBC 20.2 H RBC 5.36 H Hgb 15.9 H Hct 46.4 H MCV 86.7 MCH 29.7 MCHC 34.3 RDW 13.0 Plt Count 328 MPV 9.3 Absolute Neuts (auto) 17.3 Neutrophils % 85.5 H Neutrophils % (Manual) 85.0 H Band Neutrophils % 1.0 Lymphocytes % 8.7 D Lymphocytes % (Manual) 9.0 Monocytes % 5.6 D Monocytes % (Manual) 5 Eosinophils % 0.0 D Basophils % 0.2 Nucleated RBC % 0 Platelet Estimate Adequate Platelet Comment No clumping noted PT with INR 11.90 INR 1.05 PTT (Actin FS) Sodium 135 L Potassium 3.5 Chloride 103 Carbon Dioxide 22 Anion Gap 10 BUN 13 Creatinine 0.6 Creat Clearance w eGFR > 60 Random Glucose 112 H Lactic Acid Calcium 8.8 Total Bilirubin 0.9 D AST 21 ALT 27 Alkaline Phosphatase 111 Creatine Kinase 223 H Creatine Kinase Index 0.6 CK-MB (CK-2) 1.36 Troponin I 0.07 H Total Protein 7.8 Albumin 3.9 Urine Color Urine Appearance Urine pH Ur Specific [place] Urine Protein Urine Glucose (UA) Urine Ketones Urine Blood Urine Nitrite Urine Bilirubin Urine Urobilinogen Ur Leukocyte Esterase Urine WBC (Auto) Urine RBC (Auto) Ur Epithelial Cells Urine Bacteria Urine Mucus Opiates Screen Methadone Screen Barbiturate Screen Phencyclidine Screen Ur Amphetamines Screen MDMA (Ecstasy) Screen Benzodiazepines Screen Cocaine Screen U Marijuana (THC) Screen Blood Type Antibody Screen 01/21/18 01/22/18 01/22/18 23:57 00:33 01:05 WBC RBC Hgb Hct MCV MCH MCHC RDW Plt Count MPV Absolute Neuts (auto) Neutrophils % Neutrophils % (Manual) Band Neutrophils % Lymphocytes % Lymphocytes % (Manual) Monocytes % Monocytes % (Manual) Eosinophils % Basophils % Nucleated RBC % Platelet Estimate Platelet Comment PT with INR INR PTT (Actin FS) Sodium Potassium Chloride Carbon Dioxide Anion Gap BUN Creatinine Creat Clearance w eGFR Random Glucose Lactic Acid 1.1 Calcium Total Bilirubin AST ALT Alkaline Phosphatase Creatine Kinase Creatine Kinase Index CK-MB (CK-2) Troponin I Total Protein Albumin Urine Color Urine Appearance Urine pH Ur Specific [place] Urine Protein Urine Glucose (UA) Urine Ketones Urine Blood Urine Nitrite Urine Bilirubin Urine Urobilinogen Ur Leukocyte Esterase Urine WBC (Auto) Urine RBC (Auto) Ur Epithelial Cells Urine Bacteria Urine Mucus Opiates Screen Positive Methadone Screen Negative Barbiturate Screen Negative Phencyclidine Screen Negative Ur Amphetamines Screen Negative MDMA (Ecstasy) Screen Negative Benzodiazepines Screen Negative Cocaine Screen Negative U Marijuana (THC) Screen Negative Blood Type O POSITIVE Antibody Screen Negative 01/22/18 01/22/18 01/22/18 01:45 01:48 06:00 WBC 16.1 H RBC 5.19 Hgb 15.4 H Hct 45.2 MCV 87.1 MCH 29.7 MCHC 34.1 RDW 13.1 Plt Count 327 MPV 9.2 Absolute Neuts (auto) Neutrophils % Neutrophils % (Manual) Band Neutrophils % Lymphocytes % Lymphocytes % (Manual) Monocytes % Monocytes % (Manual) Eosinophils % Basophils % Nucleated RBC % Platelet Estimate Platelet Comment PT with INR 11.80 INR 1.04 PTT (Actin FS) 37.5 H Sodium Potassium Chloride Carbon Dioxide Anion Gap BUN Creatinine Creat Clearance w eGFR Random Glucose Lactic Acid Calcium Total Bilirubin AST ALT Alkaline Phosphatase Creatine Kinase Creatine Kinase Index CK-MB (CK-2) Troponin I Total Protein Albumin Urine Color Straw Urine Appearance Clear Urine pH 6.0 Ur Specific [place] 1.027 Urine Protein 1+ H Urine Glucose (UA) Negative Urine Ketones 1+ H Urine Blood 2+ H Urine Nitrite Negative Urine Bilirubin Negative Urine Urobilinogen Negative Ur Leukocyte Esterase Negative Urine WBC (Auto) 5 Urine RBC (Auto) 4 Ur Epithelial Cells Few Urine Bacteria Few Urine Mucus Rare Opiates Screen Methadone Screen Barbiturate Screen Phencyclidine Screen Ur Amphetamines Screen MDMA (Ecstasy) Screen Benzodiazepines Screen Cocaine Screen U Marijuana (THC) Screen Blood Type Antibody Screen 01/22/18 01/22/18 06:00 06:00 WBC RBC Hgb Hct MCV MCH MCHC RDW Plt Count MPV Absolute Neuts (auto) Neutrophils % Neutrophils % (Manual) Band Neutrophils % Lymphocytes % Lymphocytes % (Manual) Monocytes % Monocytes % (Manual) Eosinophils % Basophils % Nucleated RBC % Platelet Estimate Platelet Comment PT with INR 11.80 INR 1.04 PTT (Actin FS) 33.3 Sodium 137 Potassium 3.6 Chloride 103 Carbon Dioxide 23 Anion Gap 11 BUN 9 Creatinine 0.6 Creat Clearance w eGFR > 60 Random Glucose 162 H Lactic Acid Calcium 8.6 Total Bilirubin 1.0 AST 23 ALT 25 Alkaline Phosphatase 115 Creatine Kinase 221 H Creatine Kinase Index 0.5 CK-MB (CK-2) 1.19 Troponin I 0.08 H Total Protein 7.9 Albumin 4.0 Urine Color Urine Appearance Urine pH Ur Specific [place] Urine Protein Urine Glucose (UA) Urine Ketones Urine Blood Urine Nitrite Urine Bilirubin Urine Urobilinogen Ur Leukocyte Esterase Urine WBC (Auto) Urine RBC (Auto) Ur Epithelial Cells Urine Bacteria Urine Mucus Opiates Screen Methadone Screen Barbiturate Screen Phencyclidine Screen Ur Amphetamines Screen MDMA (Ecstasy) Screen Benzodiazepines Screen Cocaine Screen U Marijuana (THC) Screen Blood Type Antibody Screen Problem List - Problems (1) Intractable headache Code(s): R51 - HEADACHE Qualifiers: Headache type: unspecified Headache chronicity pattern: acute headache Qualified Code(s): R51 - Headache (2) Vision loss, bilateral Code(s): H54.3 - UNQUALIFIED VISUAL LOSS, BOTH EYES (3) Anxiety Code(s): F41.9 - ANXIETY DISORDER, UNSPECIFIED (4) Back pain Code(s): M54.9 - DORSALGIA, UNSPECIFIED Qualifiers: Back pain location: low back pain (5) Dehydration Code(s): E86.0 - DEHYDRATION Assessment/Plan Low clinical suspicion of Meningitis Uncontrolled HTN Spinal Stenosis Patient reports that she was told that she has a pheochromocytoma Need to get office records from PMD Follow Neuro exam HIV testing D/C isolation as patient has no indication of infectious process MS PRN for pain OOB to chair Ophthalmology evaluation may be of some benefit if workup is non-revealing Start anti-HTN Floor Dr Gleason Critical care time spent in reviewing chart, evaluating patient and formulating plan - 36 minutes.
--- NOTE | 2018-01-22 12:00 | PN ---
Physical Exam: SUBJECTIVE: Patient seen and examined. Complains of blurry vision and headache. Constantly requesting pain medications. Denies sob, chest pain, nausea, vomiting, dizziness, lightheadedness. OBJECTIVE: Vital Signs Period Temp Pulse Resp BP Sys/George Pulse Ox Last 24 Hr 98.2 F-99.9 F 20-90 18-20 142-168/89-100 98-100 GENERAL: anxious appearing, in NAD HEAD: Normal with no signs of trauma. EYES: PERRL, extraocular movements intact, sclera anicteric, conjunctiva clear. No ptosis. No papilledema on fundoscopic examination. ENT: oropharynx clear without exudates, moist mucous membranes. NECK: full range of motion, supple. LUNGS: Breath sounds equal, clear to auscultation bilaterally, no wheezes HEART: Regular rate, rhythm, S1, S2 without murmur, rub or gallop. ABDOMEN: Soft, nontender, nondistended, normoactive bowel sounds EXTREMITIES: 2+ pulses, warm, well-perfused, no edema. NEUROLOGICAL: Cranial nerves II through XII grossly intact. strength 5/5 throughout SKIN: Warm, dry, normal turgor, no rashes or lesions noted Laboratory Results - last 24 hr 01/21/18 01/21/18 01/21/18 23:55 23:57 23:57 WBC 20.2 H RBC 5.36 H Hgb 15.9 H Hct 46.4 H MCV 86.7 MCH 29.7 MCHC 34.3 RDW 13.0 Plt Count 328 MPV 9.3 Absolute Neuts (auto) 17.3 Neutrophils % 85.5 H Neutrophils % (Manual) 85.0 H Band Neutrophils % 1.0 Lymphocytes % 8.7 D Lymphocytes % (Manual) 9.0 Monocytes % 5.6 D Monocytes % (Manual) 5 Eosinophils % 0.0 D Basophils % 0.2 Nucleated RBC % 0 Platelet Estimate Adequate Platelet Comment No clumping noted PT with INR 11.90 INR 1.05 PTT (Actin FS) Sodium 135 L Potassium 3.5 Chloride 103 Carbon Dioxide 22 Anion Gap 10 BUN 13 Creatinine 0.6 Creat Clearance w eGFR > 60 Random Glucose 112 H Lactic Acid Calcium 8.8 Total Bilirubin 0.9 D AST 21 ALT 27 Alkaline Phosphatase 111 Creatine Kinase 223 H Creatine Kinase Index 0.6 CK-MB (CK-2) 1.36 Troponin I 0.07 H Total Protein 7.8 Albumin 3.9 Urine Color Urine Appearance Urine pH Ur Specific [place] Urine Protein Urine Glucose (UA) Urine Ketones Urine Blood Urine Nitrite Urine Bilirubin Urine Urobilinogen Ur Leukocyte Esterase Urine WBC (Auto) Urine RBC (Auto) Ur Epithelial Cells Urine Bacteria Urine Mucus Opiates Screen Methadone Screen Barbiturate Screen Phencyclidine Screen Ur Amphetamines Screen MDMA (Ecstasy) Screen Benzodiazepines Screen Cocaine Screen U Marijuana (THC) Screen Blood Type Antibody Screen 01/21/18 01/22/18 01/22/18 23:57 00:33 01:05 WBC RBC Hgb Hct MCV MCH MCHC RDW Plt Count MPV Absolute Neuts (auto) Neutrophils % Neutrophils % (Manual) Band Neutrophils % Lymphocytes % Lymphocytes % (Manual) Monocytes % Monocytes % (Manual) Eosinophils % Basophils % Nucleated RBC % Platelet Estimate Platelet Comment PT with INR INR PTT (Actin FS) Sodium Potassium Chloride Carbon Dioxide Anion Gap BUN Creatinine Creat Clearance w eGFR Random Glucose Lactic Acid 1.1 Calcium Total Bilirubin AST ALT Alkaline Phosphatase Creatine Kinase Creatine Kinase Index CK-MB (CK-2) Troponin I Total Protein Albumin Urine Color Urine Appearance Urine pH Ur Specific [place] Urine Protein Urine Glucose (UA) Urine Ketones Urine Blood Urine Nitrite Urine Bilirubin Urine Urobilinogen Ur Leukocyte Esterase Urine WBC (Auto) Urine RBC (Auto) Ur Epithelial Cells Urine Bacteria Urine Mucus Opiates Screen Positive Methadone Screen Negative Barbiturate Screen Negative Phencyclidine Screen Negative Ur Amphetamines Screen Negative MDMA (Ecstasy) Screen Negative Benzodiazepines Screen Negative Cocaine Screen Negative U Marijuana (THC) Screen Negative Blood Type O POSITIVE Antibody Screen Negative 01/22/18 01/22/18 01/22/18 01:45 01:48 06:00 WBC 16.1 H RBC 5.19 Hgb 15.4 H Hct 45.2 MCV 87.1 MCH 29.7 MCHC 34.1 RDW 13.1 Plt Count 327 MPV 9.2 Absolute Neuts (auto) Neutrophils % Neutrophils % (Manual) Band Neutrophils % Lymphocytes % Lymphocytes % (Manual) Monocytes % Monocytes % (Manual) Eosinophils % Basophils % Nucleated RBC % Platelet Estimate Platelet Comment PT with INR 11.80 INR 1.04 PTT (Actin FS) 37.5 H Sodium Potassium Chloride Carbon Dioxide Anion Gap BUN Creatinine Creat Clearance w eGFR Random Glucose Lactic Acid Calcium Total Bilirubin AST ALT Alkaline Phosphatase Creatine Kinase Creatine Kinase Index CK-MB (CK-2) Troponin I Total Protein Albumin Urine Color Straw Urine Appearance Clear Urine pH 6.0 Ur Specific [place] 1.027 Urine Protein 1+ H Urine Glucose (UA) Negative Urine Ketones 1+ H Urine Blood 2+ H Urine Nitrite Negative Urine Bilirubin Negative Urine Urobilinogen Negative Ur Leukocyte Esterase Negative Urine WBC (Auto) 5 Urine RBC (Auto) 4 Ur Epithelial Cells Few Urine Bacteria Few Urine Mucus Rare Opiates Screen Methadone Screen Barbiturate Screen Phencyclidine Screen Ur Amphetamines Screen MDMA (Ecstasy) Screen Benzodiazepines Screen Cocaine Screen U Marijuana (THC) Screen Blood Type Antibody Screen 01/22/18 01/22/18 06:00 06:00 WBC RBC Hgb Hct MCV MCH MCHC RDW Plt Count MPV Absolute Neuts (auto) Neutrophils % Neutrophils % (Manual) Band Neutrophils % Lymphocytes % Lymphocytes % (Manual) Monocytes % Monocytes % (Manual) Eosinophils % Basophils % Nucleated RBC % Platelet Estimate Platelet Comment PT with INR 11.80 INR 1.04 PTT (Actin FS) 33.3 Sodium 137 Potassium 3.6 Chloride 103 Carbon Dioxide 23 Anion Gap 11 BUN 9 Creatinine 0.6 Creat Clearance w eGFR > 60 Random Glucose 162 H Lactic Acid Calcium 8.6 Total Bilirubin 1.0 AST 23 ALT 25 Alkaline Phosphatase 115 Creatine Kinase 221 H Creatine Kinase Index 0.5 CK-MB (CK-2) 1.19 Troponin I 0.08 H Total Protein 7.9 Albumin 4.0 Urine Color Urine Appearance Urine pH Ur Specific [place] Urine Protein Urine Glucose (UA) Urine Ketones Urine Blood Urine Nitrite Urine Bilirubin Urine Urobilinogen Ur Leukocyte Esterase Urine WBC (Auto) Urine RBC (Auto) Ur Epithelial Cells Urine Bacteria Urine Mucus Opiates Screen Methadone Screen Barbiturate Screen Phencyclidine Screen Ur Amphetamines Screen MDMA (Ecstasy) Screen Benzodiazepines Screen Cocaine Screen U Marijuana (THC) Screen Blood Type Antibody Screen Active Medications Generic Name Dose Route Start Last Admin Trade Name Freq PRN Reason Stop Dose Admin Acetaminophen 1,000 mg 01/22/18 04:56 01/22/18 04:50 Ofirmev Injection - IVPB 1,000 mg Q6H PRN Administration HEADACHE Morphine Sulfate 2 mg 01/22/18 11:48 Morphine Sulfate IVPUSH Q6H PRN PAIN LEVEL 6-10 ASSESSMENT/PLAN: Neuro #Intractable headache #Vision Loss -Neuro consulted: with low suspicion for meningitis. No focal deficits and does not demonstrate signficant nuchal rigidity. -Head CT, NECK CTA, HEAD CTA, unremarkable for acute pathology -FU neuro reccs -patient appears anxious and requesting pain meds. -ID on board -Morphine PRN for pain -Need to get office records from PMD -HIV testing -D/c isolation -ucx, bcx pending -Positive opiates before morphine given in ED #CV -Hypertensive -Clonidine 0.1 q8h -monitor bp -trend trops, -trop .07,.08 #FEN -No iv fluids -monitor lytes -Regular diet #DVT -EA Transfer to med-surge Visit type - Emergency Visit Emergency Visit: Yes ED Registration Date: 01/22/18 Care time: The patient presented to the Emergency Department on the above date and was hospitalized for further evaluation of their emergent condition. - New Patient This patient is new to me today: Yes Date on this admission: 01/22/18 - Critical Care Critical Care patient: Yes Total Critical Care Time (in minutes): 40 Critical Care Statement: The care of this patient involved high complexity decision making to prevent further life threatening deterioration of the patient 's condition and/or to evaluate & treat vital organ system(s) failure or risk of failure.
[2018-01-22] MEDS ORDERED: morphine CARPU-JECT 2 MG/1 ML DISP.SYRIN ONE (12:08)
[2018-01-22] MEDS ORDERED: cloNIDine HCL 0.1 MG TABLET PO SCH (14:00)
--- NOTE | 2018-01-22 16:58 | DS ---
Physical Examination Vital Signs: Vital Signs Temperature 98.7 F 01/22/18 06:00 Pulse Rate 20 L 01/22/18 10:00 Respiratory Rate 20 01/22/18 10:00 Blood Pressure 153/99 01/22/18 10:00 O2 Sat by Pulse Oximetry (%) 99 01/22/18 09:00 Labs: CBC, BMP 01/22/18 06:00 01/22/18 06:00 Discharge Summary Reason For Visit: VSUAL LOSS, BOTH EYES UNQUALIFIED-INTRACTABLE HEAD - Instructions Disposition: AGAINST MEDICAL ADVICE
--- NOTE | 2018-01-22 16:58 | HP ---
Admitting History and Physical - Past Medical History ...: No Musculoskeletal: Yes: Chronic low back pain (she has been getting injections at a pain clinic for back pain) - Past Surgical History Past Surgical History: Yes: Appendectomy - Smoking History Smoking history: Current some day smoker Have you smoked in the past 12 months: Yes Aproximately how many cigarettes per day: 5 - Alcohol/Substance Use Hx Alcohol Use: No - Social History ADL: Independent Home Medications - Allergies Allergies/Adverse Reactions: Allergies Allergy/AdvReac Type Severity Reaction Status Date / Time Penicillins Allergy Severe Difficulty Verified 01/21/18 23:24 Breathing Family Disease History - Family Disease History Family Disease History: Heart Disease: Mother, Respiratory: Father, Mother Physical Examination Vital Signs: Vital Signs Temperature 98.7 F 01/22/18 06:00 Pulse Rate 20 L 01/22/18 10:00 Respiratory Rate 20 01/22/18 10:00 Blood Pressure 153/99 01/22/18 10:00 O2 Sat by Pulse Oximetry (%) 99 01/22/18 09:00 Labs: CBC, BMP 01/22/18 06:00 01/22/18 06:00
[2018-01-23] MEDS ORDERED: amLODIPine BESYLATE 5 MG TABLET (FP) PO SCH (10:00)
== END 2018-01-22 15:05 | disposition left against medical advice (07) | DRG 82 ==
LOC: JER 23:04 → JERBED 01-22 04:18 → JICU 01-22 04:33
PROVIDERS: ADMIT Internal Medicine; ATTEND Internal Medicine
DX: H54.3 Unqualified visual loss, both eyes (principal); M54.2 Cervicalgia; R51 Headache; F41.9 Anxiety disorder, unspecified; F17.210 Nicotine dependence, cigarettes, uncomplicated; I10 Essential (primary) hypertension; M54.5 Low back pain; E86.0 Dehydration; M48.00 Spinal stenosis, site unspecified; Z91.14 Patient's other noncompliance with medication regimen
CPT/HCPCS: 36415; 70450-TC; 70496-TC; 70498-TC; 71045-TC-FY; 80053; 80307; 81003; 81015; 82550; 82553; 83605; 84484; 85025; 85027; 85610; 85730; 86850; 86900; 86901; 87040; 87086; 93005; 93010; 99285-25; J0131; J0735; J1100; J7030

== ENCOUNTER 2018-03-26 19:32 | Emergency (ER) | payer OTHER ==
[2018-03-26 19:51] VITALS: BP 99/63; PULSE 86; TEMP 97.8; BMI 23.3
--- NOTE | 2018-03-26 19:51 | PDOC ---
Rapid Medical Evaluation Chief Complaint: Substance Abuse Time Seen by Provider: 03/26/18 19:45 Medical Evaluation: Allergies Allergy/AdvReac Type Severity Reaction Status Date / Time Penicillins Allergy Severe Difficulty Verified 01/21/18 23:24 Breathing 03/26/18 19:45 I have performed a [id number] evaluation of this patient. The patient presents with a chief complaints of: "I ran out of medication" Oxycodone 15mg Ran out of meds x5d ago. Prescribed by pain management/ Dr. Petr Celaya from the for "nerve damage". 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 Last oxycodone x5d ago. Today her friend gave her heroin "to help me". Pt snorted "a little more than a package" of heroin @~10am Pt was n/v right after the heroin but feels better now. No CP, SOB Now: pt c/o sciatica/hip pain" Pertinent physical exam findings: Pt ambulating L/S CTAB RRR, S1,S2, abd soft, NT, ND I have ordered the followin The patient will proceed to the ED for further evaluation. PT'S STEP FATHER STATES PT NEEDS MEDICAL CLEARANCE TO BE GO [facility] "PT STATES SHE HAS NO IDEA ABOUT [facility] AND JUST WANTS PAIN MEDS REFILL" Discharge Disposition - Referrals Referrals: Mayur Marquez MD [Primary Care Provider] - - Patient Instructions - Post Discharge Activity
--- NOTE | 2018-03-26 21:13 | PDOC ---
History of Present Illness - History of Present Illness Initial Comments: The patient is a 52F with a history of chronic back pain and sciatica who ran out of her pain medication who presents s/p heroine use for evaluation. She states that she has never used any illicit substance in the past and only tried heroine today because she ran out of her oxy today. She states she snorted one ' packet' of heroine earlier today but is currently unable to give a time. She endorses left back/hip pain that has been chronic. She denies fevers/chills, chest pain, sob, abdominal pain, N/V/C/D. She denies other drug use, denies EtOH use, endorses tobacco use daily Reports daughter has scabies and she was recently treated for that as well. 03/26/18 21:07 03/26/18 21:13 <Brian Sheth - Last Filed: 03/26/18 22:50> <Lauro Brooks - Last Filed: 03/27/18 00:25> - General Chief Complaint: Substance Abuse Stated Complaint: WEAKNESS Time Seen by Provider: 03/26/18 19:45 Past History - Past Medical History Anemia: No Asthma: No Cancer: No Cardiac Disorders: No CVA: No COPD: No CHF: No DVT: No Dementia: No Diabetes: No Dialysis: No GI Disorders: No Disorders: No HTN: Yes Hypercholesterolemia: No Kidney Stones: No Liver Disease: No Psychiatric Problems: Yes (ANXIETY) Seizures: No Thyroid Disease: No Lung CA: No Other medical history: sciatica - Surgical History Abdominal Surgery: No Appendectomy: Yes Cardiac Surgery: No Cholecystectomy: No Gastric Stapling: No GI Surgery: No Lung Surgery: No Neurologic Surgery: Yes (Spinal sx) Orthopedic Surgery: No - Family Disease History Family Disease History: Other: Brother (poly) - Suicide/Smoking/Psychosocial Hx Smoking Status: Yes Smoking History: Current some day smoker Have you smoked in the past 12 months: Yes Number of Cigarettes Smoked Daily: 15 Information on smoking cessation initiated: Yes 'Breaking Loose' booklet given: 03/26/18 Hx Alcohol Use: No Drug/Substance Use Hx: Yes (opoids, heroin) Substance Use Type: None Hx Substance Use Treatment: No <Brian Sheth - Last Filed: 03/26/18 22:50> <Lauro Brooks - Last Filed: 03/27/18 00:25> - Past Medical History Allergies/Adverse Reactions: Allergies Allergy/AdvReac Type Severity Reaction Status Date / Time Penicillins Allergy Severe Difficulty Verified 01/21/18 23:24 Breathing Review of Systems - Review of Systems Comments:: GENERAL/CONSTITUTIONAL: No fever or chills. No weakness._ HEAD, EYES, EARS, NOSE AND THROAT: No change in vision. No ear pain or discharge. No sore throat._ CARDIOVASCULAR: No chest pain or shortness of breath_ RESPIRATORY: No cough, wheezing, or hemoptysis._ GASTROINTESTINAL: No nausea, vomiting, diarrhea or constipation._ GENITOURINARY: No dysuria, frequency, or change in urination._ MUSCULOSKELETAL: No joint or muscle swelling or pain. No neck or back pain._ SKIN: No rash_ NEUROLOGIC: No headache, vertigo, loss of consciousness, or change in strength/ sensation._ ENDOCRINE: No increased thirst. No abnormal weight change_ HEMATOLOGIC/LYMPHATIC: No anemia, easy bleeding, or history of blood clots._ ALLERGIC/IMMUNOLOGIC: No hives or skin allergy._ 03/26/18 21:10 <Brian Sheth - Last Filed: 03/26/18 22:50> *Physical Exam - Vital Signs Last Vital Signs Temp Pulse Resp BP Pulse Ox 97.8 F 86 20 99/63 99 03/26/18 19:45 03/26/18 19:45 03/26/18 19:45 03/26/18 19:45 03/26/18 19:45 - Physical Exam Comments: GENERAL: Awake, tired, and fully oriented, in no acute distress HEAD: No signs of trauma, normocephalic, atraumatic EYES: PERRL, EOMI, sclera anicteric, conjunctiva clear ENT: Hearing grossly normal, nares patent, oropharynx clear without exudates. Moist mucosa NECK: Normal ROM, supple LUNGS: No distress, speaks full sentences, clear to auscultation bilaterally HEART: Regular rate and rhythm, normal S1 and S2, no murmurs appreciated, peripheral pulses normal and equal bilaterally ABDOMEN: Soft, nontender, normoactive bowel sounds. No guarding, no rebound EXTREMITIES : Normal inspection, Normal range of motion, no edema. No clubbing or cyanosis NEUROLOGICAL: Cranial nerves II through XII grossly intact. Normal speech, normal gait, no focal sensorimotor deficits SKIN: Warm, Dry, multiple excoriations throughout upper and lower extremities. 03/26/18 21:10 <Brian Sheth - Last Filed: 03/26/18 22:50> - Vital Signs Last Vital Signs Temp Pulse Resp BP Pulse Ox 97.8 F 86 20 99/63 99 03/26/18 19:45 03/26/18 19:45 03/26/18 19:45 03/26/18 19:45 03/26/18 19:45 <Lauro Brooks - Last Filed: 03/27/18 00:25> ED Treatment Course - LABORATORY CBC & Chemistry Diagram: 03/26/18 21:10 03/26/18 21:10 <Brian Sheth - Last Filed: 03/26/18 22:50> - LABORATORY CBC & Chemistry Diagram: 03/26/18 21:10 03/26/18 21:10 - ADDITIONAL ORDERS Additional order review: Laboratory Results 03/26/18 03/26/18 03/26/18 21:30 21:30 21:10 Sodium Potassium Chloride Carbon Dioxide Anion Gap BUN Creatinine Creat Clearance w eGFR Random Glucose Calcium Total Bilirubin AST ALT Alkaline Phosphatase Total Protein Albumin Urine Color Yellow Urine Appearance Clear Urine pH 5.0 Ur Specific Holl[place] 1.014 Urine Protein Negative Urine Glucose (UA) Negative Urine Ketones Negative Urine Blood Negative Urine Nitrite Negative Urine Bilirubin Negative Urine Urobilinogen Negative Ur Leukocyte Esterase 1+ H Urine WBC (Auto) 3 Urine RBC (Auto) 7 Ur Epithelial Cells Rare Hyaline Casts 3 Urine Mucus Few Urine HCG, Qual Negative Opiates Screen Positive Methadone Screen Negative Barbiturate Screen Negative Phencyclidine Screen Negative Ur Amphetamines Screen Negative MDMA (Ecstasy) Screen Negative Benzodiazepines Screen Positive Cocaine Screen Positive U Marijuana (THC) Screen Negative Alcohol, Quantitative < 5.0 03/26/18 21:10 Sodium 145 Potassium 3.9 Chloride 109 H Carbon Dioxide 30 Anion Gap 6 L BUN 12 Creatinine 0.7 Creat Clearance w eGFR > 60 Random Glucose 82 Calcium 8.6 Total Bilirubin 0.4 AST 34 ALT 32 Alkaline Phosphatase 93 Total Protein 6.6 Albumin 3.5 Urine Color Urine Appearance Urine pH Ur Specific Hollister Urine Protein Urine Glucose (UA) Urine Ketones Urine Blood Urine Nitrite Urine Bilirubin Urine Urobilinogen Ur Leukocyte Esterase Urine WBC (Auto) Urine RBC (Auto) Ur Epithelial Cells Hyaline Casts Urine Mucus Urine HCG, Qual Opiates Screen Methadone Screen Barbiturate Screen Phencyclidine Screen Ur Amphetamines Screen MDMA (Ecstasy) Screen Benzodiazepines Screen Cocaine Screen U Marijuana (THC) Screen Alcohol, Quantitative 03/26/18 21:10 RBC 4.29 MCV 89.3 MCHC 33.6 RDW 13.9 MPV 8.4 Neutrophils % 51.1 D Lymphocytes % 37.6 D Monocytes % 7.9 Eosinophils % 2.9 D Basophils % 0.5 - Medications Given in the ED: ED Medications Discontinued Medications Generic Name Dose Route Start Last Admin Trade Name Freq PRN Reason Stop Dose Admin Acetaminophen 975 mg 03/26/18 22:49 03/27/18 00:14 Tylenol - PO 03/26/18 22:50 Not Given ONCE ONE <Lauro Brooks - Last Filed: 03/27/18 00:25> Medical Decision Making - Medical Decision Making Patient states that she does not wish to go to detox. She reports that she would like to leave and is now more coherent than previous. She has called her mother who will come get her and stay will her s/p discharge. Will plan for discharge once her mother is present to take her home 03/26/18 22:50 <Brian Sheth - Last Filed: 03/26/18 22:50> *DC/Admit/Observation/Transfer - Discharge Dispostion Decision to Admit order: No <Brian Sheth - Last Filed: 03/26/18 22:50> <Lauro Brooks - Last Filed: 03/27/18 00:25> Diagnosis at time of Disposition: Substance abuse - Discharge Dispostion Disposition: HOME Condition at time of disposition: Improved - Referrals Referrals: Mayur Marquez MD [Primary Care Provider] - - Patient Instructions Printed Discharge Instructions: Chemical Dependency (Narcotic) (Alternative Therapy), Getting Treatment for Drug Addiction Additional Instructions: Please avoid using any drugs. Follow up with your primary care physician and the pain management physician for any medication refills. Be sure to follow up with your physician within 48 hours. Return to the ER for any concerns, chest pain, shortness of breath Francis Juarez 08/27/1964 [facility] lic #[id number] am taking Ann Aly home. I take full responsibility to be sure she arrives home safely and care for her until she seeks medical attention with her primary care physician. X Francis Leal/friend & neighbor X Lauro DAVIS - Post Discharge Activity
[2018-03-26 21:44] LABS: URINE APPEARANCE CLEAR; URINE BILIRUBIN NEGATIVE (<2.0 mg/dL); URINE COLOR YELLOW; URINE GLUCOSE (UA) NEGATIVE (NEGATIVE); URINE KETONE NEGATIVE (NEGATIVE); URINE NITRITE NEGATIVE (NEGATIVE); URINE PROTEIN NEGATIVE (NEGATIVE); URINE UROBILINOGEN NEGATIVE mg/dL (0.2-1.0)
[2018-03-26 21:49] LABS: HCG,QUALITATIVE URINE NEGATIVE
[2018-03-26 21:49] LABS: BASO % 0.5 % (0-2.0); EOS % 2.9 % (0-4.5); HEMATOCRIT 38.3 % (32.4-45.2); HEMOGLOBIN 12.9 GM/dL (10.7-15.3); LYMPH % 37.6 % (8-40); MCHC 33.6 g/dl (32.0-36.0); MEAN CELL VOLUME 89.3 fl (80-96); MEAN PLT VOLUME 8.4 fl (7.5-11.1); MONO % 7.9 % (3.8-10.2); NEUT % 51.1 % (42.8-82.8); PLATELET COUNT 287 K/MM3 (134-434); RBC 4.29 M/mm3 (3.60-5.2); RDW 13.9 % (11.6-15.6); WHITE BLOOD COUNT 8.5 K/mm3 (4.0-10.0)
[2018-03-26 21:50] LABS: EPI CELLS RARE /HPF (FEW); URINE HYALINE CAST 3 /lpf; URINE LEUK ESTERASE 1+ (NEGATIVE); URINE MUCUS FEW
[2018-03-26 21:54] LABS: PHENCYCLIDINE,URINE NEGATIVE ng/ml (CUTOFF=25); URINE AMPHETAMINES NEGATIVE ng/ml (CUTOFF=500); URINE BARBITURATES NEGATIVE ng/ml (CUTOFF=200)
[2018-03-26 21:55] LABS: COCAINE, UR POSITIVE ng/ml (CUTOFF=300); METHADONE, UR NEGATIVE ng/ml (CUTOFF=300); OPIATES, URI POSITIVE ng/ml (CUTOFF=300); URINE BENZODIAZEPINES POSITIVE ng/ml (CUTOFF=200)
[2018-03-26 22:16] LABS: ALBUMIN 3.5 g/dl (3.4-5.0); ALK PHOS 93 U/L (45-117); ANION GAP 6 (8-16); BILIRUBIN,TOTAL 0.4 mg/dL (0.2-1.0); BLOOD UREA NITROGEN 12 mg/dL (7-18); CALCIUM 8.6 mg/dL (8.5-10.1); CHLORIDE 109 mmol/L (98-107); CO2 30 mmol/L (21-32); CREATININE 0.7 mg/dL (0.55-1.02); GLUCOSE,RANDOM 82 mg/dL (74-106); POTASSIUM 3.9 mmol/L (3.5-5.1); SGOT/AST 34 U/L (15-37); SGPT/ALT 32 U/L (12-78); SODIUM 145 mmol/L (136-145); TOT PROT 6.6 g/dl (6.4-8.2)
[2018-03-26] MEDS ORDERED: ACETAMINOPHEN 325 MG TABLET (FP) PO ONE (22:49)
--- NOTE | 2018-03-26 23:20 | PDOC ---
Attending Attestation - Resident Resident Name: Brian Sheth - ED Attending Attestation I have performed the following: I have examined & evaluated the patient, The case was reviewed & discussed with the resident, I agree w/resident's findings & plan, Exceptions are as noted - HPI HPI: 03/26/18 23:01 52F with h/o chronic back pain and sciatica, polysubstance abuse, presenting to ED after being brought in by family member for intoxication. Pt admits to snorting a packet of heroin today. She states that she ran out of oxy for her back pain and took the heroin instead. Pt denies any coingestions. Denies SI/HI/ AVH. denies fevers/chills, chest pain, sob, abdominal pain, N/V/C/D. endorses tobacco use daily PCP: Dr. Mayur Marquez - Physicial Exam PE: 03/26/18 23:20 GENERAL: Awake, alert, and fully oriented, in no acute distress. HEAD: No signs of trauma EYES: PERRLA, EOMI, sclera anicteric, conjunctiva clear ENT: Auricles normal inspection, hearing grossly normal, nares patent, oropharynx clear without exudates. Moist mucosa NECK: Nontender, no stepoffs, Normal ROM, supple, no lymphadenopathy, JVD, or masses LUNGS: Breath sounds equal, clear to auscultation bilaterally. No wheezes, and no crackles HEART: Regular rate and rhythm, normal S1 and S2, no murmurs, rubs or gallops ABDOMEN: Soft, nontender, normoactive bowel sounds. No guarding, no rebound. No masses EXTREMITIES: Normal range of motion, no edema. No clubbing or cyanosis. No cords, erythema, or tenderness NEUROLOGICAL: Cranial nerves II through XII intact. 5/5 strength and sensation in all extremities, Normal speech, normal gait, normal cerebellar function SKIN: Warm, Dry, normal turgor, no rashes or lesions noted. - Medical Decision Making 03/26/18 23:20 52 F with acute intoxication after snorting heroin. Pt protecting airway. At time of my evaluation, is ambulatory with steady gait. Now clinically sober. Pt denying SI/HI/AVH. Refuses detox. Pt to be accompanied home by family member. Pt is well appearing, with normal vitals. Clinically stable for DC at this time. I discussed the physical exam findings, ancillary test results and final diagnoses with the patient. I answered all of the patient's questions. The patient was satisfied with the care received and felt comfortable with the discharge plan and treatment plan. The patient agrees to follow up with the primary care physician within 24-72 hours.
== END 2018-03-27 00:29 | disposition home or self-care (01) ==
LOC: JER 19:32
DX: F19.90 Other psychoactive substance use, unspecified, uncomplicated (principal); G89.29 Other chronic pain
CPT/HCPCS: 36415; 80053; 80307; 81003; 81015; 84703; 85025; 99281-25

== ENCOUNTER 2020-07-10 15:26 | Emergency (ER) | payer OTHER | END 2020-07-10 17:47 | disposition home or self-care (01) | LOC: JVIRT 15:26 | DX: R05 Cough (principal); Z11.59 Encounter for screening for other viral diseases | CPT/HCPCS: C9803; Q3014-GT; U0003 ==

== ENCOUNTER 2021-04-11 17:30 | Emergency (ER) | payer OTHER ==
[2021-04-14 07:01] LABS: SARS-CoV-2 NAA Not Detected (Not Detected)
== END 2021-04-11 18:14 | disposition home or self-care (01) ==
LOC: JVIRT 17:30
DX: Z11.52 Encounter for screening for COVID-19 (principal)
CPT/HCPCS: C9803; Q3014-GT; U0003; U0005